=== PATIENT | female | born 1940 | race Caucasian/White ===

== ENCOUNTER → 2017-09-08 | Emergency (ER) | payer OTHER ==
[~2017-09-08] VITALS: Ht 152.4 cm; Wt 72.6 kg
[~2017-09-08] MED LIST: ARICEPT10 MG; COZAAR25 MG; DEPAKOTE ER500 MG; LISINOPRIL2.5 MG; METOPROLOL SUCC25 MG; NABUMETONE750 MG PO
== END | disposition home or self-care (01) ==
LOC: ER 20:07
DX: S00.83XA Contusion of other part of head, initial encounter (principal); S70.02XA Contusion of left hip, initial encounter; G30.8 Other Alzheimer's disease; F02.80 Dementia in other diseases classified elsewhere, unspecified severity, without behavioral disturbance, psychotic disturbance, mood disturbance, and anxiety; I10 Essential (primary) hypertension; W18.09XA Striking against other object with subsequent fall, initial encounter; Y93.89 Activity, other specified; Y92.098 Other place in other non-institutional residence as the place of occurrence of the external cause; Y99.8 Other external cause status

== ENCOUNTER 2019-01-25 11:47 | Emergency (ER) | payer OTHER ==
[~2019-01-25] VITALS: Ht 152.4 cm; Wt 60.3 kg
[2019-01-25] MEDS ORDERED: AMLODIPINE-OLM1 EAC2 PO (12:00)
== END 2019-01-25 14:35 | disposition home or self-care (01) ==
LOC: ER 11:47
DX: R55 Syncope and collapse (principal)

== ENCOUNTER 2019-08-08 15:14 | Emergency (ER) | payer OTHER ==
[~2019-08-08] VITALS: Ht 149.9 cm; Wt 62.6 kg
[~2019-08-08 15:14] MED LIST changes: +AMLODIPINE-OLM1 EAC2 PO
== END 2019-08-08 18:44 | disposition home or self-care (01) ==
LOC: ER 15:14
DX: R22.43 Localized swelling, mass and lump, lower limb, bilateral (principal)